=== PATIENT | male | born 1955 | race Two or more races ===

== ENCOUNTER 2016-12-07 10:45 | Inpatient (IN) | payer MEDICAID ==
[~2016-12-07] VITALS: Ht 167.6 cm; Wt 69.3 kg
[2016-12-07 12:19] LABS: Basophils # (auto) 0.1 uL; Basophils % (auto) 1.1 % (0.0-2.0); Eosinophils # (auto) 0.2 uL; Eosinophils % (auto) 2.6 % (0.0-7.0); Hematocrit 37.1 % (41.0-53.0); Hemoglobin 12.7 g/dL (13.5-17.5); Lymphocytes # (auto) 1.1 uL; Lymphocytes % (auto) 14.1 % (10.0-50.0); Mean Corpuscular Hgb Conc. 34.1 g/dL (32.0-36.0); Mean Platelet Volume 8.9 fL (6.9-10.8); Monocytes # (auto) 0.9 uL; Monocytes % (auto) 12.1 % (0.0-12.0); Neutrophils # (auto) 5.3 uL; Neutrophils % (auto) 70.1 % (37.0-80.0); Nucleated Red Blood Cells % 0.1 %; Platelet Count (auto) 150 10^3/uL (140-450); Red Cell Distribution Width 15.9 % (11.8-14.3); White Blood Cell 7.6 10^3/uL (4.4-10.8)
[2016-12-07 12:41] LABS: BUN/Creatinine Ratio 25.8; Bilirubin, Total 2.8 mg/dL (0.2-1.0); Calcium 7.7 mg/dL (8.5-10.1); Magnesium 2.3 mg/dL (1.6-2.6); Total Protein 6.9 g/dL (6.4-8.2)
[2016-12-07 12:46] LABS: B-Type Natriuretic Peptide 92.17 pg/mL (0-100); Temperature: 22.3 C (20.0-25.0)
[2016-12-07 12:54] LABS: Potassium 2.7 mmol/L (3.5-5.1)
[2016-12-07] MEDS ORDERED: FUROSEMIDE 40 MG/4 ML VIAL IV ONE (13:00)
[2016-12-07] MEDS ORDERED: LACTULOSE 20Gm/30ML SOLN PO ONE (13:00)
[2016-12-07] MEDS ORDERED: LORazepam 0.5 MG TAB PO PRN (13:15)
[2016-12-07] MEDS ORDERED: TEMAZEPAM 15 MG CAP PO PRN (13:15)
[2016-12-07] MEDS ORDERED: ALBUTEROL SULF 2.5 MG/0.5ML(0.5%) NEB SOLN NEB PRN (13:15)
[2016-12-07] MEDS ORDERED: NITROGLYCERIN 0.4 MG SL TAB SL PRN (13:15)
[2016-12-07] MEDS ORDERED: cefTRIAXone 1GM/50ML D5W 50 ML IV ONE (13:15)
[2016-12-07] MEDS ORDERED: PANTOPRAZOLE 40 MG/10 ML VIAL IV ONE (13:15)
[2016-12-07] MEDS ORDERED: POTASSIUM CHL 20MEQ/100ML 100 ML IV SCH (13:15)
[2016-12-07] MEDS ORDERED: MORPHINE SULF INJ 2 MG/ML SYRINGE 1ML IV PRN (13:15)
[2016-12-07] MEDS ORDERED: DEXTROSE (50%) 50ML SYRG IV PRN (13:15)
[2016-12-07] MEDS: POTASSIUM CHL 20MEQ/100ML 100 ML IV SCH ×5 (13:31→23:44)
[2016-12-07 13:59] LABS: INR 1.1 (0.9-1.15)
[2016-12-07 14:21] LABS: Temperature: 22.7 C (20.0-25.0)
[2016-12-07] MEDS ORDERED: THIAMINE HCL 100 MG/ML 2ML VIAL IV ONE (14:30)
[2016-12-07] MEDS ORDERED: chlordiazePOXIDE HCL 25 MG CAP PO PRN (14:30)
[2016-12-07] MEDS ORDERED: LIDOCAINE 2%HCL (LOCAL ANESTH.) INJ 20ML MDV ONE (15:02)
[2016-12-07] MEDS: metroNIDAZOLE 500MG/100ML 100 ML IV SCH ×2 (15:04→21:18)
[2016-12-07 17:23] VITALS: BP 122/80
[2016-12-07 17:47] LABS: Urine Bilirubin Negative (Negative); Urine Blood Negative /uL (Negative); Urine Color Yellow (Yellow); Urine Glucose Normal (Normal); Urine Ketone Negative (Negative); Urine Mucus FEW (None Seen); Urine Nitrite Negative (Negative); Urine RBC 1 /hpf (0 - 3); Urine Urobilinogen Normal (Negative); Urine pH 5.5 (5.0-8.0)
[2016-12-07] MEDS: InsuLIN REG 1unit/0.01ml Soln (100units/ml) SC SCH ×2 (18:00→23:44)
[2016-12-07] MEDS: ACCU-CHEK COMFORT CURVE STRIP VI SCH ×2 (18:30→23:44)
[2016-12-07] MEDS: chlordiazePOXIDE HCL 5 MG CAP PO SCH ×2 (18:31→23:44)
[2016-12-07] MEDS: IPRATROPIUM BROM 0.5 MG/2.5ML INH SOL NEB SCH ×2 (19:02→19:58)
[2016-12-07] MEDS: ALBUTEROL SULF 2.5 MG/0.5ML(0.5%) NEB SOLN NEB SCH ×2 (19:02→19:59)
[2016-12-07 20:04] VITALS: BP 122/80
[2016-12-07 20:59] LABS: Body Fluid Polymorphonuclear 30 %
[2016-12-07 22:00] VITALS: BP 122/77
[2016-12-08] MEDS: metroNIDAZOLE 500MG/100ML 100 ML IV SCH ×4 (03:00→21:00)
[2016-12-08 05:00] VITALS: BP 114/74
[2016-12-08] MEDS: ACCU-CHEK COMFORT CURVE STRIP VI SCH ×4 (05:37→23:47)
[2016-12-08] MEDS: InsuLIN REG 1unit/0.01ml Soln (100units/ml) SC SCH ×4 (05:37→23:47)
[2016-12-08] MEDS: IPRATROPIUM BROM 0.5 MG/2.5ML INH SOL NEB SCH ×4 (06:13→20:34)
[2016-12-08] MEDS: ALBUTEROL SULF 2.5 MG/0.5ML(0.5%) NEB SOLN NEB SCH ×4 (06:13→20:34)
[2016-12-08 06:33] LABS: Basophils # (auto) 0.1 uL; Basophils % (auto) 1.4 % (0.0-2.0); Eosinophils # (auto) 0.1 uL; Eosinophils % (auto) 1.4 % (0.0-7.0); Hematocrit 35.9 % (41.0-53.0); Hemoglobin 12.1 g/dL (13.5-17.5); Lymphocytes # (auto) 2.3 uL; Lymphocytes % (auto) 23.5 % (10.0-50.0); Mean Corpuscular Hemoglobin 31.7 pg (28.0-32.0); Mean Corpuscular Hgb Conc. 33.7 g/dL (32.0-36.0); Mean Corpuscular Volume 93.9 fL (80.0-100.0); Mean Platelet Volume 9.6 fL (6.9-10.8); Monocytes # (auto) 1.2 uL; Neutrophils % (auto) 61.7 % (37.0-80.0); Nucleated Red Blood Cells % 0.1 %; Platelet Count (auto) 149 10^3/uL (140-450); Red Cell Distribution Width 15.8 % (11.8-14.3); White Blood Cell 9.7 10^3/uL (4.4-10.8)
[2016-12-08 06:34] LABS: Albumin 1.9 g/dL (3.4-5.0); Calcium 7.7 mg/dL (8.5-10.1); Potassium 3.3 mmol/L (3.5-5.1)
[2016-12-08 06:42] LABS: BUN/Creatinine Ratio 19.2; Bilirubin, Total 2.3 mg/dL (0.2-1.0); Total Protein 6.3 g/dL (6.4-8.2)
[2016-12-08] MEDS: chlordiazePOXIDE HCL 5 MG CAP PO SCH ×4 (07:14→23:47)
[2016-12-08 07:45] LABS: Temperature: 21.5 C (20.0-25.0)
[2016-12-08] MEDS: cefTRIAXone 1GM/50ML D5W 50 ML IV SCH (09:00)
[2016-12-08 09:04] VITALS: BP 107/64
[2016-12-08] MEDS: THIAMINE HCL 100 MG/ML 2ML VIAL IV SCH (10:00)
[2016-12-08] MEDS: FUROSEMIDE 40 MG/4 ML VIAL IV SCH (10:00)
[2016-12-08] MEDS: PANTOPRAZOLE 40 MG/10 ML VIAL IV SCH (10:00)
[2016-12-08] MEDS: ENALAPRIL MALEATE 2.5 MG TAB PO SCH (10:07)
[2016-12-08] MEDS: POTASSIUM CHL 20 Meq TABLET PO SCH (10:07)
[2016-12-08 13:00] VITALS: BP 121/77
[2016-12-08 16:57] VITALS: BP 114/67
[2016-12-08 22:00] VITALS: BP 120/75
[2016-12-09] MEDS: metroNIDAZOLE 500MG/100ML 100 ML IV SCH ×4 (03:00→22:40)
[2016-12-09 05:00] VITALS: BP 126/78
[2016-12-09] MEDS: chlordiazePOXIDE HCL 5 MG CAP PO SCH ×3 (06:25→18:19)
[2016-12-09] MEDS: InsuLIN REG 1unit/0.01ml Soln (100units/ml) SC SCH ×3 (06:25→18:00)
[2016-12-09] MEDS: ACCU-CHEK COMFORT CURVE STRIP VI SCH ×3 (06:26→18:18)
[2016-12-09] MEDS: MORPHINE SULF INJ 2 MG/ML SYRINGE 1ML IV PRN ×4 (06:27→20:18)
[2016-12-09] MEDS: IPRATROPIUM BROM 0.5 MG/2.5ML INH SOL NEB SCH ×4 (07:04→22:55)
[2016-12-09] MEDS: ALBUTEROL SULF 2.5 MG/0.5ML(0.5%) NEB SOLN NEB SCH ×4 (07:04→22:55)
[2016-12-09 07:43] LABS: Basophils # (auto) 0.1 uL; Basophils % (auto) 0.7 % (0.0-2.0); CONDITION Y; Eosinophils # (auto) 0.1 uL; Eosinophils % (auto) 0.9 % (0.0-7.0); Hematocrit 39.1 % (41.0-53.0); Hemoglobin 13.1 g/dL (13.5-17.5); Lymphocytes # (auto) 1.6 uL; Lymphocytes % (auto) 17.4 % (10.0-50.0); Mean Corpuscular Hemoglobin 31.5 pg (28.0-32.0); Mean Corpuscular Hgb Conc. 33.4 g/dL (32.0-36.0); Mean Corpuscular Volume 94.4 fL (80.0-100.0); Mean Platelet Volume 9.1 fL (6.9-10.8); Monocytes % (auto) 10.9 % (0.0-12.0); Neutrophils # (auto) 6.4 uL; Neutrophils % (auto) 70.1 % (37.0-80.0); Platelet Count (auto) 222 10^3/uL (140-450); Red Cell Distribution Width 16.7 % (11.8-14.3); White Blood Cell 9.2 10^3/uL (4.4-10.8)
[2016-12-09 08:10] LABS: Albumin 2.1 g/dL (3.4-5.0); Calcium 8.1 mg/dL (8.5-10.1); Potassium 3.5 mmol/L (3.5-5.1)
[2016-12-09 08:13] LABS: Bilirubin, Total 2.3 mg/dL (0.2-1.0); Total Protein 6.6 g/dL (6.4-8.2)
[2016-12-09] MEDS: cefTRIAXone 1GM/50ML D5W 50 ML IV SCH (09:00)
[2016-12-09 09:11] VITALS: BP 129/75
[2016-12-09] MEDS: POTASSIUM CHL 20 Meq TABLET PO SCH (10:09)
[2016-12-09] MEDS: THIAMINE HCL 100 MG/ML 2ML VIAL IV SCH (10:09)
[2016-12-09] MEDS: FUROSEMIDE 40 MG/4 ML VIAL IV SCH (10:09)
[2016-12-09] MEDS: PANTOPRAZOLE 40 MG/10 ML VIAL IV SCH (10:10)
[2016-12-09] MEDS: ENALAPRIL MALEATE 2.5 MG TAB PO SCH (10:10)
[2016-12-09] MEDS ORDERED: LACTULOSE 20Gm/30ML SOLN PO ONE (10:30)
[2016-12-09] MEDS ORDERED: NICOTINE 14 MG/24HR TOPICAL PATCH TD ONE (10:30)
[2016-12-09 12:57] VITALS: BP 124/79
[2016-12-09] MEDS: PROMETHAZINE HCL 25 MG/ML 1ML IV PRN (15:04)
[2016-12-09 17:05] VITALS: BP 107/75
[2016-12-09 21:00] VITALS: BP 120/73
[2016-12-09] MEDS: LACTULOSE 20Gm/30ML SOLN PO SCH (22:40)
[2016-12-10] MEDS: ACCU-CHEK COMFORT CURVE STRIP VI SCH ×5 (00:06→23:20)
[2016-12-10] MEDS: chlordiazePOXIDE HCL 5 MG CAP PO SCH ×5 (00:08→23:19)
[2016-12-10] MEDS: metroNIDAZOLE 500MG/100ML 100 ML IV SCH ×4 (03:23→21:19)
[2016-12-10 05:33] VITALS: BP 106/69
[2016-12-10] MEDS: InsuLIN REG 1unit/0.01ml Soln (100units/ml) SC SCH ×5 (06:00→23:20)
[2016-12-10] MEDS: ALBUTEROL SULF 2.5 MG/0.5ML(0.5%) NEB SOLN NEB SCH ×3 (07:33→18:28)
[2016-12-10] MEDS: IPRATROPIUM BROM 0.5 MG/2.5ML INH SOL NEB SCH ×3 (07:33→18:28)
[2016-12-10 07:38] VITALS: BP 113/72
[2016-12-10] MEDS: MORPHINE SULF INJ 2 MG/ML SYRINGE 1ML IV PRN ×2 (08:12→19:52)
[2016-12-10] MEDS: cefTRIAXone 1GM/50ML D5W 50 ML IV SCH (09:00)
[2016-12-10] MEDS: ENALAPRIL MALEATE 2.5 MG TAB PO SCH (10:00)
[2016-12-10] MEDS: NICOTINE 14 MG/24HR TOPICAL PATCH TD SCH (10:00)
[2016-12-10] MEDS: POTASSIUM CHL 20 Meq TABLET PO SCH (10:00)
[2016-12-10] MEDS: LACTULOSE 20Gm/30ML SOLN PO SCH ×4 (10:00→23:23)
[2016-12-10 11:31] VITALS: BP 126/70
[2016-12-10] MEDS: PROMETHAZINE HCL 25 MG/ML 1ML IV PRN ×2 (11:37→19:52)
[2016-12-10] MEDS: FUROSEMIDE 40 MG/4 ML VIAL IV SCH (11:38)
[2016-12-10] MEDS: PANTOPRAZOLE 40 MG/10 ML VIAL IV SCH (11:38)
[2016-12-10] MEDS: THIAMINE HCL 100 MG/ML 2ML VIAL IV SCH (11:38)
[2016-12-10 20:13] VITALS: BP 113/72
[2016-12-11] MEDS: metroNIDAZOLE 500MG/100ML 100 ML IV SCH ×3 (02:32→15:00)
[2016-12-11 05:00] VITALS: BP 132/79
[2016-12-11 05:25] LABS: Basophils # (auto) 0 uL; Basophils % (auto) 0.3 % (0.0-2.0); CONDITION Y; Eosinophils # (auto) 0.1 uL; Eosinophils % (auto) 1.6 % (0.0-7.0); Hematocrit 36.6 % (41.0-53.0); Hemoglobin 11.9 g/dL (13.5-17.5); Lymphocytes # (auto) 1.5 uL; Lymphocytes % (auto) 16.7 % (10.0-50.0); Mean Corpuscular Hemoglobin 31.5 pg (28.0-32.0); Mean Corpuscular Hgb Conc. 32.6 g/dL (32.0-36.0); Mean Corpuscular Volume 96.8 fL (80.0-100.0); Mean Platelet Volume 8.9 fL (6.9-10.8); Monocytes # (auto) 0.8 uL; Monocytes % (auto) 8.9 % (0.0-12.0); Neutrophils # (auto) 6.4 uL; Neutrophils % (auto) 72.5 % (37.0-80.0); Platelet Count (auto) 176 10^3/uL (140-450); Red Cell Distribution Width 17.6 % (11.8-14.3); White Blood Cell 8.9 10^3/uL (4.4-10.8)
[2016-12-11] MEDS: ACCU-CHEK COMFORT CURVE STRIP VI SCH ×2 (05:29→12:00)
[2016-12-11] MEDS: chlordiazePOXIDE HCL 5 MG CAP PO SCH ×2 (05:29→12:00)
[2016-12-11] MEDS: LACTULOSE 20Gm/30ML SOLN PO SCH ×2 (05:29→12:00)
[2016-12-11 05:49] LABS: Potassium 4.4 mmol/L (3.5-5.1)
[2016-12-11 05:56] LABS: Albumin 2.1 g/dL (3.4-5.0); BUN/Creatinine Ratio 24.1; Bilirubin, Total 1.8 mg/dL (0.2-1.0); Calcium 8.7 mg/dL (8.5-10.1); Total Protein 6.7 g/dL (6.4-8.2)
[2016-12-11] MEDS: InsuLIN REG 1unit/0.01ml Soln (100units/ml) SC SCH ×2 (06:06→12:00)
[2016-12-11] MEDS: IPRATROPIUM BROM 0.5 MG/2.5ML INH SOL NEB SCH ×4 (07:00→13:15)
[2016-12-11] MEDS: ALBUTEROL SULF 2.5 MG/0.5ML(0.5%) NEB SOLN NEB SCH ×4 (07:00→13:15)
[2016-12-11 09:05] VITALS: BP 128/81
[2016-12-11 09:08] LABS: Hepatitis B Surface Antibody Negative
[2016-12-11] MEDS: POTASSIUM CHL 20 Meq TABLET PO SCH (09:39)
[2016-12-11] MEDS: ENALAPRIL MALEATE 2.5 MG TAB PO SCH (09:40)
[2016-12-11] MEDS: PANTOPRAZOLE 40 MG/10 ML VIAL IV SCH (09:41)
[2016-12-11] MEDS: cefTRIAXone 1GM/50ML D5W 50 ML IV SCH (09:42)
[2016-12-11] MEDS: FUROSEMIDE 40 MG/4 ML VIAL IV SCH (09:42)
[2016-12-11] MEDS: THIAMINE HCL 100 MG/ML 2ML VIAL IV SCH (09:43)
[2016-12-11] MEDS: PROMETHAZINE HCL 25 MG/ML 1ML IV PRN (09:43)
[2016-12-11] MEDS: MORPHINE SULF INJ 2 MG/ML SYRINGE 1ML IV PRN (09:44)
[2016-12-11] MEDS: NICOTINE 14 MG/24HR TOPICAL PATCH TD SCH (09:44)
[2016-12-11 13:26] VITALS: BP 135/87
[2016-12-11] MEDS ORDERED: ALBUMIN 25% 200 ML IV ONE (15:12)
== END 2016-12-11 15:05 | disposition home or self-care (01) | DRG 279 ==
LOC: ER 10:45 → EDBD 10:45 → TELE 10:46 → TELE-E-ADS 17:32 → TELE-WESTW 18:14 → WEST WING 12-08 22:40
PROVIDERS: ADMIT Internal Medicine; ATTEND Internal Medicine
PROC: 0W9G3ZZ Drainage of Peritoneal Cavity, Percutaneous Approach (ICD-10-PCS; principal; 2016-12-07)
DX: K72.90 Hepatic failure, unspecified without coma (principal); E43 Unspecified severe protein-calorie malnutrition; N18.6 End stage renal disease; K76.6 Portal hypertension; I12.0 Hypertensive chronic kidney disease with stage 5 chronic kidney disease or end stage renal disease; K70.31 Alcoholic cirrhosis of liver with ascites; E11.22 Type 2 diabetes mellitus with diabetic chronic kidney disease; J44.9 Chronic obstructive pulmonary disease, unspecified; E87.6 Hypokalemia; I25.2 Old myocardial infarction; K42.9 Umbilical hernia without obstruction or gangrene; I25.10 Atherosclerotic heart disease of native coronary artery without angina pectoris; F10.10 Alcohol abuse, uncomplicated; Y90.9 Presence of alcohol in blood, level not specified; F17.210 Nicotine dependence, cigarettes, uncomplicated; I70.8 Atherosclerosis of other arteries; J98.11 Atelectasis; Z91.14 Patient's other noncompliance with medication regimen; Z95.1 Presence of aortocoronary bypass graft; Z68.24 Body mass index [BMI] 24.0-24.9, adult
CPT/HCPCS: 36415; 70450; 71010; 74176; 76942; 80053; 80307; 80320; 81001; 82105; 82140; 82150; 82378; 82550; 82607; 82746; 82962; 83036; 83605; 83690; 83735; 83880; 83986; 84443; 84484; 85025; 85610; 85652; 85730; 86141; 86704; 86706; 86708; 86803; 87040; 87086; 87205; 87340; 89051; 93005; 94640; 95819; 96365; 96375; 97163; C9113; J0696; J1815; J3480; J3490